=== PATIENT | male | born 1985 | race Hispanic/Latino ===

== ENCOUNTER 2019-11-18 07:45 | Emergency (ER) | payer BC, OTHER ==
--- OUTSIDE RECORDS SUMMARY | 2019-11-18 07:52 | XMS REPORT | Summary of Care ---
:1985 Author Organization [facility] Address [address] [place] [address] Care Team Providers Name Role Phone Unavailable Primary Care Provider Unavailable Reason for Visit Reason Comments Results Encounter Details Date Type Department Care Team Description 09/19/2019 Telephone ACCESS CENTER Maryanne Licona FNP Results [address] [address] [facility] [phone] [place] [id number] Allergies Not on Filedocumented as of this encounter (statuses as of 09/19/2019) Medications Not on filedocumented as of this encounter (statuses as of 09/19/2019) Active Problems Not on filedocumented as of this encounter (statuses as of 09/19/2019) Social History Tobacco Use Types Packs/Day Years Used Date Never Assessed Sex Assigned at Date Recorded Not on file Job Start Date Occupation Industry Not on file Not on file Not on file Travel History Travel Start Travel End No recent travel history available. documented as of this encounter Last Filed Vital Signs Not on filedocumented in this encounter Plan of Treatment Health Maintenance Due Date Last Done Comments VARICELLA VACCINES (1 of 2 - 02/09/1984 2-dose childhood series) DTaP,Tdap,and Td Vaccines (1 - 1994 Tdap) Depression Screening 1995 INFLUENZA VACCINE (#1) 2019 PNEUMOCOCCAL 0-64 YEARS COMBINED Aged Out No longer eligible based on SERIES patient's age to complete this topic documented as of this encounter Results Not on filedocumented in this encounter Additional Health Concerns Infection Onset Date Last Indicated Resolved Time COVID-19 Rule Out 09/18/2019 09/18/2019 09/19/2019 2: 35 AM CDT COVID-19 Confirmed 09/18/2019 09/18/2019 documented as of this encounter Insurance Payer Benefit Plan Subscriber ID Effective Dates Phone Address Type / Group BCBS OF [facility] [id number] 2019-Katiana [phone] [address] PPO/POS [place] t [id number] [place] [address] documented as of this encounter
--- OUTSIDE RECORDS SUMMARY | 2019-11-18 07:52 | XMS REPORT | Summary of Care ---
:1985 Author Organization [facility] - [facility] Address [address] [place] [id number] Care Team Providers Name Role Phone Unavailable Primary Care Provider Unavailable Reason for Visit Reason Comments Exposure LAB Encounter Details Date Type Department Care Team Description 09/18/2019 Laboratory Only [facility] Family Kita Licona FNP [address] [place] [phone] Suspected Covid-19 [facility] Lab, Adc Fam Pob I Virus Infection [address] [place] [address] (Primary D x) [place] [address] Allergies Not on Filedocumented as of this encounter (statuses as of 09/18/2019) Medications Not on filedocumented as of this encounter (statuses as of 09/18/2019) Active Problems Not on filedocumented as of this encounter (statuses as of 09/18/2019) Social History Tobacco Use Types Packs/Day Years Used Date Never Assessed Sex Assigned at Date Recorded Not on file Job Start Date Occupation Industry Not on file Not on file Not on file Travel History Travel Start Travel End No recent travel history available. documented as of this encounter Last Filed Vital Signs Not on filedocumented in this encounter Plan of Treatment Name Type Priority Associated Diagnoses Order S chedule COVID-19 (PCR MOLECULAR LAB Routine Suspected Covid-1 9 Virus Expected: 09/18/2019, TESTING) Infection Expires: 2020 Health Maintenance Due Date Last Done Comments VARICELLA VACCINES (1 of 2 - 02/09/1984 2-dose childhood series) DTaP,Tdap,and Td Vaccines (1 - 1994 Tdap) Depression Screening 1995 INFLUENZA VACCINE (#1) 2019 PNEUMOCOCCAL 0-64 YEARS COMBINED Aged Out No longer eligible based on SERIES patient's age to complete this topic documented as of this encounter Results Not on filedocumented in this encounter Visit Diagnoses Diagnosis Suspected Covid-19 Virus Infection - [facility] documented in this encounter Additional Health Concerns Infection Onset Date Last Indicated Resolved Time COVID-19 Rule Out 09/18/2019 09/18/2019 documented as of this encounter Insurance Payer Benefit Plan Subscriber ID Effective Dates Phone Address Type / Group BCBS [facility] [id number] 2019-Katiana [phone] [address] PPO/POS [facility] [id number] [place] [address] documented as of this encounter
--- OUTSIDE RECORDS SUMMARY | 2019-11-18 07:52 | XMS REPORT | Summary of Care ---
:1985 Author Organization [facility] - [facility] Address [address] [place] [address] Care Team Providers Name Role Phone Unavailable Primary Care Provider Unavailable Encounter Details Date Type Department Care Team Description 09/18/2019 Letter (Out) [facility] MyChart Message s Doctor Unassigned, No 301 [facility] [place] [address] 301 [facility] [phone] [place] [address] Allergies Not on Filedocumented as of this [...] filedocumented in this encounter Plan of Treatment Date Type Specialty Care Team Description 09/18/2019 Laboratory Only Family Medicine Maryanne Licona FNP [address] [place] [phone] Suspected Covid-19 Lab, Adc Fam Pob I Virus Infection (Primary Dx) Health Maintenance Due Date Last Done Comments VARICELLA VACCINES (1 of 2 - 02/09/1984 2-dose childhood series) DTaP,Tdap,and Td Vaccines ( - 1994 Tdap) Depression Screening 1995 INFLUENZA VACCINE (#1) 2019 PNEUMOCOCCAL 0-64 YEARS COMBINED Aged Out No longer eligible based on SERIES patient's age to complete this topic documented as of this encounter Results Not on filedocumented in this encounter Insurance Payer Benefit Plan Subscriber ID Effective Dates Phone Address Type / Group BCBS OF [facility] [id number] 2019-Katiana [phone] [address] PPO/POS [place] t [id number] [place] [address] documented as of this encounter
--- OUTSIDE RECORDS SUMMARY | 2019-11-18 07:52 | XMS REPORT | Continuity of Care Document ---
:1985 Author Organization [facility] t Address [address] [place] [address] Care Team Providers Name Role Phone Maryanne Pisano Attending Clinician Lab, [facility] Pob I Attending Clinician Unavailable Doctor Unassigned, Name Attending Clinician Unavailable Problems This patient has no known problems. Allergies, Adverse Reactions, Alerts This patient has no known allergies or adverse reactions. Medications This patient has no known medications. Procedures This patient has no known procedures. Encounters Start End Encounter Admission Attending Care Care Encounter Source Date/Time Date/Time Type Type Clinicians Facility Department ID 2019-09-19 2019-09-19 Telephone MATTHEW Licona [id number] 00:00:00 00:00:00 Maryanne ELLIOTT [id number] [facility] [phone] [id number] 2019-09-18 2019-09-18 Laboratory Lab, [facility] [id number] 10:08:45 10:28:45 Only Fam Pob I Health [id number] [place] [id number] Michael [phone] [address] 2019-09-18 2019-09-18 Letter Doctor MATTHEW [id number] 00:00:00 00:00:00 (Out) UnassLEXI glaser [id number] [place] [facility] [id number] Results This patient has no known results.
--- NOTE | 2019-11-18 08:06 | ER ---
Nurse's Notes [facility] Name: Venkatesh Sanabria IV Age: 34 yrs Sex: Male : 1985 Arrival Date: 11/18/2019 Time: 07:47 Bed 14 Private MD: Diagnosis: Roach's palsy Presentation: 11/17 07:55 Chief complaint: Patient states: "Yesterday afternoon I was whistling and noticied my ss lips felt weird. It's not numb or anything, but I was brushing my teeth this morning and my mouth was doing this and on my way to work my eye was twitching so my boss told me to come here.". Coronavirus screen: Client denies travel out of the [place] in the last 14 days. Ebola Screen: Patient denies exposure to infectious person. Patient denies travel to an Ebola-affected area in the 21 days before illness onset. Initial Sepsis Screen: Does the patient meet any 2 criteria? HR > 90 bpm. Does the patient have a suspected source of infection? No. Patient's initial sepsis screen is negative. Risk Assessment: Do you want to hurt yourself or someone else? Patient reports no desire to harm self or others. Onset of symptoms was November 17, 2019. 07:55 Method Of Arrival: Ambulatory ss 07:55 Acuity: BERYL 3 ss 08:18 No acute neurological deficit is noted. The patients blood glucose was checked prior to bp arriving to the hospital and was found to be hyperglycemic. The patient has been moved to a treatment room. Triage Assessment: 07:50 The onset of the patients symptoms was November 17, 2019 at 17:00. General: Appears in bp no apparent distress. comfortable, obese, Behavior is cooperative, appropriate for age, anxious. Pain: Denies pain. EENT: R FACIAL DROOP INVOLVING THE MUSCLES OF THE BROW. Neuro: Reports R FACIAL DROOP INVOLVING THE MUSCLES OF THE BROW. Cardiovascular: No deficits noted. Respiratory: No deficits noted. GI: No signs and/or symptoms were reported involving the gastrointestinal system. : No signs and/or symptoms were reported regarding the genitourinary system. Derm: No deficits noted. Musculoskeletal: No deficits noted. Stroke Activation: Symptom onset > 6 hours Physician: Stroke Attending; Name: ; Notified At: ; Arrived At: Physician: Chief Stroke Resident; Name: ; Notified At: ; Arrived At: Physician: Stroke Resident; Name: ; Notified At: ; Arrived At: Physician: ED Attending; Name: ; Notified At: ; Arrived At: Physician: ED Resident; Name: ; Notified At: ; Arrived At: Historical: - Allergies: 08:00 No Known Allergies; ss - PMHx: 08:00 Diabetes - NIDDM; Hyperlipidemia; Hypertension; ss - PSHx: 08:00 None; ss - Immunization history:: Adult Immunizations up to date. - Social history:: Smoking status: Patient denies any tobacco usage or history of. Screenin:54 Abuse screen: Denies threats or abuse. Denies injuries from another. Nutritional bp screening: No deficits noted. Tuberculosis screening: No symptoms or risk factors identified. Fall Risk None identified. Assessment: 07:54 VAN Scoring: Arm Drift: Patients demonstrates NO arm weakness. Patient is VAN Negative. bp The patient has not been NPO before screening. The patient is alert, and able to follow commands. The patient does not exhibit slurred or garbled speech. The patient is not exhibiting difficulty speaking. The patient does not exhibit difficulty understanding words. The patient is able to swallow own secretions with no drooling or need for suction. Patient tolerated one teaspoon of water. No drooling, immediate coughing, gurgling, or clearing of the throat was noted. The patient tolerated 90mL of water. No drooling, immediate coughing, gurgling, or clearing of the throat was noted. The patient passed the bedside swallow screening. Oral medications may be given as ordered. Contact Physician for further diet orders. Provider notified of bedside swallow screening results: Cj Benjamin MD. T-PA (Activase) Screening: Contraindications: Patient reports onset of signs and symptoms of stroke greater than 6 hours ago: Yes. General: SEE TRIAGE NOTE. 08:17 Reassessment: PT D/C HOME AMBULATORY, DX WITH ROACH'S PALSY. bp Vital Signs: 07:55 BP 138 / 94; Pulse 91; Resp 16; Temp 97.0(TE); Pulse Ox 99% on R/A; Weight 106.59 kg; ss Height 5 ft. 2 in. (157.48 cm); Pain 0/10; 08:16 BP 148 / 92; Pulse 87; Resp 16; Temp 97; Pulse Ox 99% ; bp 07:55 Body Mass Index 42.98 (106.59 kg, 157.48 cm) ss NIH Stroke Scale Scores: 07:54 NIHSS Score: 2 bp ED Course: 07:47 Patient arrived in ED. as 07:49 Mayo Olson, GUERA is Primary Nurse. bp 07:49 Cj Benjamin MD is Attending Physician. kdr 07:54 Patient has correct armband on for positive identification. Bed in low position. Call bp light in reach. Side rails up X2. 07:59 Triage completed. ss 08:00 Arm band placed on right wrist. ss 08:17 No provider procedures requiring assistance completed. Patient did not have IV access bp during this emergency room visit. Administered Medications: No medications were administered Point of Care Testing: Blood Glucose: 07:50 Blood Glucose: 235 mg/dL; bp Ranges: Outcome: 08:05 Discharge ordered by . kdr 08:17 Discharged to home ambulatory. bp 08:17 Condition: stable 08:17 Discharge instructions given to patient, Instructed on discharge instructions, follow up and referral plans. Demonstrated understanding of instructions, follow-up care. 08:18 Patient left the ED. bp NIH Stroke Scale - NIH Stroke Score Date: 11/18/2019 Time: 07:54 Total Score = 2 1a. Level of Consciousness (LOC) - 0(Alert) 1b. Level of Consciousness (LOC) (Year \\T\\ Age) - 0(Both) 1c. LOC Commands (Open \\T\\ Closes Eyes/[employer]) - 0(Both) 2. Best Gaze (Lateral Gaze Paresis) - 0(Normal) 3. Visual Field Loss - 0(No visual loss) 4. Facial Palsy - 2(Partial paralysis) 5a. Left Arm: Motor (10-second hold) - 0(No drift) 5b. Right Arm: Motor (10-second hold) - 0(No drift) 6a. Left Leg: Motor (5-second hold - always test supine) - 0(No drift) 6b. Right Leg: Motor (5-second hold - always test supine) - 0(No drift) 7. Limb Ataxia (finger/nose \\T\\ heel/trejo - test with eyes open) - 0(Absent) 8. Sensory Loss (pinprick arms/legs/face) - 0(Normal) 9. Best Language: Aphasia (description/naming/reading) - 0(No aphasia) 10. Dysarthria (speech clarity - read or repeat words) - 0(Normal) 11. Extinction and Inattention (visual/tactile/auditory/spatial/personal) - 0(No abnormality) Initials: bp Signatures: Cj Benjamin MD MD kdr Martinez, Amelia as Smirch, Shelby, RN RN ss Mayo Olson RN RN bp
--- NOTE | 2019-11-18 08:07 | EDPHYS ---
Physician Documentation [facility] Name: Venkatesh Sanabria IV Age: 34 yrs Sex: Male : 1985 Arrival Date: 11/18/2019 Time: 07:47 Bed 14 Private MD: ED Physician Cj Benjamin HPI: 11/17 08:16 This 34 yrs old Male presents to ER via Ambulatory with complaints of Facial kdr Droop. 08:16 The patient presents to the emergency department with weakness of the right side of the kdr face, that is mild. Onset: The symptoms/episode began/occurred gradually, yesterday. Context: occurred at work, occurred while the patient was doing normal activity. Associated signs and symptoms: Pertinent positives: weakness. Severity of symptoms: At their worst the symptoms were mild in the emergency department the symptoms are unchanged. Patient's baseline: Neuro: alert and fully oriented, Motor: no deficits, Ambulation: walks without assistance, Speech: normal. Current symptoms: paralysis or paresis, of the forehead, right eye, right cheek and right jaw, that is mild. The patient has not experienced similar symptoms in the past. The patient has not recently seen a physician. Historical: - Allergies: 08:00 No Known Allergies; ss - PMHx: 08:00 Diabetes - NIDDM; Hyperlipidemia; Hypertension; ss - PSHx: 08:00 None; ss - Immunization history:: Adult Immunizations up to date. - Social history:: Smoking status: Patient denies any tobacco usage or history of. ROS: 08:16 Constitutional: Negative for fever, chills, and weight loss, ENT: Negative for injury, kdr pain, and discharge, Neck: Negative for injury, pain, and swelling, Cardiovascular: Negative for chest pain, palpitations, and edema, Respiratory: Negative for shortness of breath, cough, wheezing, and pleuritic chest pain, Abdomen/GI: Negative for abdominal pain, nausea, vomiting, diarrhea, and constipation, Back: Negative for injury and pain, : Negative for injury, bleeding, discharge, and swelling, MS/Extremity: Negative for injury and deformity, Skin: Negative for injury, rash, and discoloration, Psych: Negative for depression, anxiety, suicide ideation, homicidal ideation, and hallucinations, Allergy/Immunology: Negative for hives, rash, and allergies, Endocrine: Negative for neck swelling, polydipsia, polyuria, polyphagia, and marked weight changes, Hematologic/Lymphatic: Negative for swollen nodes, abnormal bleeding, and unusual bruising. 08:16 Neuro: Positive for weakness, Negative for altered mental status, dizziness, gait disturbance, headache, hearing loss, loss of consciousness, seizure activity, speech changes, syncope, near syncope, tingling, tinnitus, tremor, visual changes. Exam: 08:16 Constitutional: This is a well developed, well nourished patient who is awake, alert, kdr and in no acute distress. Head/Face: Normocephalic, atraumatic. There is right sided facial drooping that involves the forehead. Eyes: Pupils equal round and reactive to light, extra-ocular motions intact. Lids and lashes normal. Conjunctiva and sclera are non-icteric and not injected. Cornea within normal limits. Periorbital areas with no swelling, redness, or edema. Neck: Trachea midline, no thyromegaly or masses palpated, and no cervical lymphadenopathy. Supple, full range of motion without nuchal rigidity, or vertebral point tenderness. No Meningismus. Chest/axilla: Normal chest wall appearance and motion. Nontender with no deformity. No lesions are appreciated. Cardiovascular: Regular rate and rhythm with a normal S1 and S2. No gallops, murmurs, or rubs. Normal PMI, no JVD. No pulse deficits. Respiratory: Lungs have equal breath sounds bilaterally, clear to auscultation and percussion. No rales, rhonchi or wheezes noted. No increased work of breathing, no retractions or nasal flaring. Abdomen/GI: Soft, non-tender, with normal bowel sounds. No distension or tympany. No guarding or rebound. No evidence of tenderness throughout. Back: No spinal tenderness. No costovertebral tenderness. Full range of motion. Skin: Warm, dry with normal turgor. Normal color with no rashes, no lesions, and no evidence of cellulitis. MS/ Extremity: Pulses equal, no cyanosis. Neurovascular intact. Full, normal range of motion. Psych: Awake, alert, with orientation to person, place and time. Behavior, mood, and affect are within normal limits. 08:16 Neuro: Orientation: is normal, Mentation: is normal, Memory: is normal, Cranial nerves: facial droop noted on right, with forehead involved. Ptosis of right upper eyelid. Vital Signs: 07:55 BP 138 / 94; Pulse 91; Resp 16; Temp 97.0(TE); Pulse Ox 99% on R/A; Weight 106.59 kg; ss Height 5 ft. 2 in. (157.48 cm); Pain 0/10; 08:16 BP 148 / 92; Pulse 87; Resp 16; Temp 97; Pulse Ox 99% ; bp 07:55 Body Mass Index 42.98 (106.59 kg, 157.48 cm) ss NIH Stroke Scale Scores: 07:54 NIHSS Score: 2 bp MDM: 08:05 Patient medically screened. kdr 08:16 Data reviewed: vital signs, nurses notes. Counseling: I had a detailed discussion with kdr the patient and/or guardian regarding: the historical points, exam findings, and any diagnostic results supporting the discharge/admit diagnosis, the need for outpatient follow up. 11/17 08:05 Order name: Glucose, Ancillary Testing EDMS Administered Medications: No medications were administered Point of Care Testing: Blood Glucose: 07:50 Blood Glucose: 235 mg/dL; bp Ranges: Critical Glucose Levels:Adult <50 mg/dl or >400 mg/dl <40 mg/dl or >180 mg/dl Disposition: 11/18/19 08:05 Discharged to Home. Impression: Roach's palsy. - Condition is Stable. - Discharge Instructions: Roach Palsy, Adult. - Medication Reconciliation Form, Thank You Letter form. - Follow up: Private Physician; When: 2 - 3 days; Reason: If symptoms return, Further diagnostic work-up, Recheck today's complaints, Continuance of care, Re-evaluation by your physician. - Problem is new. - Symptoms are unchanged. NIH Stroke Scale - NIH Stroke Score Date: 11/18/2019 Time: 07:54 Total Score = 2 1a. Level of Consciousness (LOC) - 0(Alert) 1b. Level of Consciousness (LOC) (Year \T\ Age) - 0(Both) 1c. LOC Commands (Open \T\ Closes Eyes/Broadcast Correspondent) - 0(Both) 2. Best Gaze (Lateral Gaze Paresis) - 0(Normal) 3. Visual Field Loss - 0(No visual loss) 4. Facial Palsy - 2(Partial paralysis) 5a. Left Arm: Motor (10-second hold) - 0(No drift) 5b. Right Arm: Motor (10-second hold) - 0(No drift) 6a. Left Leg: Motor (5-second hold - always test supine) - 0(No drift) 6b. Right Leg: Motor (5-second hold - always test supine) - 0(No drift) 7. Limb Ataxia (finger/nose \T\ heel/trejo - test with eyes open) - 0(Absent) 8. Sensory Loss (pinprick arms/legs/face) - 0(Normal) 9. Best Language: Aphasia (description/naming/reading) - 0(No aphasia) 10. Dysarthria (speech clarity - read or repeat words) - 0(Normal) 11. Extinction and Inattention (visual/tactile/auditory/spatial/personal) - 0(No abnormality) Initials: bp Signatures: Cj Benjamin MD MD [facility] Kaylee Villasenor RN RN ss Mayo Olson RN RN bp Corrections: (The following items were deleted from the chart) 08:18 08:05 11/18/2019 08:05 Discharged to Home. Impression: Roach's palsy. Condition bp is Stable. Forms are Medication Reconciliation Form, Thank You Letter, Antibiotic Education, Prescription Opioid Use. Follow up: Private Physician; When: 2 - 3 days; Reason: If symptoms return, Further diagnostic work-up, Recheck today's complaints, Continuance of care, Re-evaluation by your physician. Problem is new. Symptoms are unchanged. kdr
[2019-11-18 08:23] VITALS: O2SAT 99
[2019-11-18 08:24] VITALS: BP 148/92; TEMP 97
== END 2019-11-18 08:18 | disposition home or self-care (01) ==
LOC: ER 07:45
DX: G51.0 Bell's palsy (principal); I10 Essential (primary) hypertension
CPT/HCPCS: 82947; 99282